=== PATIENT | female | born 1985 | race Caucasian/White ===

== ENCOUNTER 2019-06-12 05:49 | Day surgery (SDC) | payer OTHER ==
[2019-06-12] MEDS ORDERED: Gabapentin 300 MG CAP ONE ×2 (06:33)
[2019-06-12] MEDS ORDERED: CeleCOXIB 100 MG CAP ONE (06:35)
[2019-06-12] MEDS ORDERED: Famotidine/PF 20 mg/2ml Vial ONE ×2 (06:35→06:42)
[2019-06-12] MEDS ORDERED: Meperidine HCl/PF 25 MG/ML VIAL ONE (06:41)
[2019-06-12] MEDS ORDERED: Fentanyl 100 MCG/2 ML VIAL ONE ×4 (06:41→11:13)
[2019-06-12 06:44] LABS: Hemoglobin 13.8 g/dL (12.0-16.0); Mean Corpuscular HGB CONC 33.8 g/dL (32.0-36.0); Mean Corpuscular Hemoglobin 31.8 pg (27.0-31.0); Mean Corpuscular Volume 94.1 fL (78.0-98.0); Mean Platelet Volume 8.7 fL (7.4-10.4); Platelet Count 208 thou/uL (130-400); RBC Distribution Width 12.5 % (11.5-14.5); Red Blood Cell (RBC) Count 4.33 mill/uL (4.20-5.40); White Blood Cell (WBC) Count 7.9 thou/uL (4.8-10.8)
[2019-06-12] MEDS ORDERED: Bupivacaine HCl 0.5%/Epinephrine 1:200,000/PF 30 ml Vial ONE (06:57)
[2019-06-12] MEDS ORDERED: SUGAMMADEX SODIUM 200 MG/2 ML VIAL ONE (07:12)
[2019-06-12] MEDS ORDERED: Midazolam HCl 2 mg/2 ml Vial ONE (07:14)
[2019-06-12] MEDS ORDERED: Ropivacaine 0.2% 550 ML 750 ML NERVE BLCK SCH ×2 (08:15→08:45)
[2019-06-12] MEDS ORDERED: Meperidine HCl/PF 25 MG/ML VIAL SLOW IVP PRN (09:57)
[2019-06-12] MEDS ORDERED: Ketorolac Tromethamine 30 MG/ML VIAL IVP PRN (09:57)
[2019-06-12] MEDS ORDERED: Ondansetron HCl/PF 4 MG/2 ML Vial IVP PRN (09:57)
[2019-06-12] MEDS ORDERED: Promethazine HCl 25 MG/ML VIAL SLOW IVP PRN (09:57)
[2019-06-12] MEDS ORDERED: Promethazine HCl 25 MG/ML VIAL IM PRN ×2 (09:57→10:58)
[2019-06-12] MEDS ORDERED: Bisacodyl 10 MG SUPP PR PRN (10:58)
[2019-06-12] MEDS ORDERED: HYDROcodone/Acetaminophen 5/325 mg Tablet PO PRN ×2 (10:58)
[2019-06-12] MEDS ORDERED: Morphine 2 MG/ML SYRINGE SLOW IVP PRN (10:58)
[2019-06-12] MEDS ORDERED: Ondansetron PF 4 MG/2 ML Vial IVP PRN (10:58)
[2019-06-12] MEDS ORDERED: Sodium Chloride 0.9% 1,000 ML IV SCH (10:58)
[2019-06-12] MEDS ORDERED: diphenhydrAMINE 25 MG CAP PO PRN (10:58)
[2019-06-12] MEDS ORDERED: Simethicone Chewable 80 MG TAB PO PRN (10:58)
[2019-06-12] MEDS ORDERED: Zolpidem Tartrate 5 MG TAB PO PRN (10:58)
[2019-06-12] MEDS ORDERED: Ketorolac Tromethamine 30 MG/ML VIAL IVP SCH (12:00)
--- NOTE | 2019-06-12 14:44 | OP ---
DATE OF PROCEDURE: 06/12/2019 PREOPERATIVE DIAGNOSES: 1. Pelvic pain. 2. Endometriosis. 3. Right lower quadrant pain. 4. Menorrhagia. 5. Dysmenorrhea. POSTOPERATIVE DIAGNOSES: 1. Pelvic pain. 2. Endometriosis. 3. Right lower quadrant pain. 4. Menorrhagia. 5. Dysmenorrhea. PROCEDURES PERFORMED: 1. Robotic-assisted total laparoscopic hysterectomy with bilateral salpingectomy and right oophorectomy. 2. ON-Q pain pump placement. METAL TEMPLATE MAKER: Brenda Andrews PA-C. COMPLICATIONS: None. ESTIMATED BLOOD LOSS: 50 mL. ANESTHESIA: GETA. OPERATIVE FINDINGS: Uterus sounds to 8 cm. Normal-appearing vagina and cervix. LAPAROSCOPIC FINDINGS: 1. Normal-appearing uterus, normal-appearing bilateral tubal segments, normal-appearing left ovary, and normal-appearing right ovary with a right paratubal cyst. 2. Dense adhesions of the bladder to the uterine, cervix, and lower uterine segment. PROCEDURE IN DETAIL: The patient was taken back to the OR with IV fluids running. Once she was in the OR, she was placed in dorsal supine position and general anesthesia was obtained. After the patient was asleep, she was placed in low dorsal lithotomy position. The abdomen and vagina were prepped and draped in normal fashion for gynecologic surgery. Surgeons were gowned and gloved. A time-out was performed. Beginning at the vagina, an operative speculum was placed into the vagina. Prior to that, the bladder was drained approximately 200 mL of urine and a Claudio syringe was attached to the catheter tip for bladder manipulation during the case. After the speculum was placed, the anterior lip of the cervix was visualized and grasped with a single-tooth tenaculum. The uterus sounded to 8 cm. A [employer] manipulator was assembled with an 8 cm tip and a 4 cm cup and placed into the uterus, cervix, and vagina in routine fashion. The vaginal and uterine occluder balloons were inflated. The operative speculum was removed. The surgeon's gloves were changed and attention was turned to the laparoscopic portion of the procedure. Beginning approximately 1 cm above the supraumbilical fold, local anesthesia was placed underneath the skin. A 12-mm skin incision was made with a scalpel. A Veress needle was placed through the skin incision through the fascia and the abdomen was insufflated without difficulty. After the abdomen was distended, the Veress needle was removed and a 12-mm Optiview trocar was placed through this incision without difficulty. The laparoscope was then placed through this trocar with the above findings noted. There were no omental or intraabdominal adhesions noted. The right and left lower quadrant 8-mm robotic trocars were placed under direct visualization without difficulty. The right upper quadrant 8-mm trocar was placed under direct visualization without difficulty as well. Once all 4 ports were placed, the robotic instruments were placed under direct visualization through the trocars and docked at the patient's bedside. Beginning on the patient's left side, the left fallopian tube segment was identified and transected. It was removed and sent for pathologic review. The left utero-ovarian ligament was cauterized and transected, allowing the left ovary to fall away to the pelvic sidewall. The round ligament on the patient's left side was cauterized and transected. It was divided into anterior posterior leaf and dissected down towards the level of the uterine artery. The bladder was back filled and noted to be densely adhered, completely covering the cervix and the lower portion of the uterus. The uterine artery was skeletonized and a small window between the cervix and the bladder was identified. Attention was then turned to the contralateral side. The ureter was noted to be running well away from the IP ligament, which was isolated, cauterized, and transected, allowing the right ovary to fall away with the uterine specimen. The round ligament on the patient's right side was cauterized, transected, and divided into anterior posterior leaf. It was dissected down towards the level of the uterine artery. From the patient's right side, the bladder was noted to be densely adhered and scarred toward the cervix as well. With the bladder backfilled and with meticulous dissection, the bladder was freed away from the uterine cervix layer by layer. With the bladder completely dissected away from the cervix, one dense band of tissue was noted anteriorly. This was taken down with cautery. Of note, the adhesions of the bladder to the cervix extended the time of the surgery and dissection by approximately 30 minutes. During this time, the bladder was backfilled and released multiple times to delineate bladder anatomy from uterine cervix. After the bladder was completely dissected and fell away from the uterine cervix and planned colpotomy site, it was backfilled again with bladder integrity noted and no areas of leaking noted. With anatomy restored at the bladder and the cervix, the uterine arteries were better identified, cauterized, and transected. The colpotomy was then completed circumferentially. The uterine specimen was retracted into the vagina and the ovary and right tube specimen was placed in the vagina as well. The surgical pedicles and vaginal cuff were copiously irrigated and any small areas of bleeding were controlled with bipolar cautery. The vaginal cuff was reapproximated with Stratafix suture in a running fashion and completed in 2 layers. After the vaginal cuff closure was complete, the surgical pedicles and vaginal cuff were irrigated one last time. The irrigation was suctioned out of the pelvis and the pressure was dropped to 4 mmHg. No areas of bleeding were noted. A layer of Tisseel was placed over the surgical pedicles and vaginal cuff. An ON-Q catheter tip was placed under direct visualization into the anatomy and placed into the pelvis. It was primed and working well at the end of the case. All instruments were then removed from the abdomen. The counts were correct. The gas was released from the abdomen and attention was turned to closing the 4-port sites. The fascia was closed at the supraumbilical port site with Vicryl suture. All 4 skin incisions were closed with Monocryl suture and dressed with Dermabond dressing. At the end of the case, the vagina was inspected with no bleeding noted. The specimens were accounted for. Final count was correct. Job ID: [id number]
[2019-06-12 15:54] VITALS: BP 112/68; TEMP 98.3
[2019-06-12 16:06] VITALS: BMI 27.6
[2019-06-12] MEDS ORDERED: Ibuprofen 800 MG TAB PO SCH (22:00)
== END 2019-06-12 19:14 | disposition home or self-care (01) ==
LOC: SDC 05:49 → 3SE 11:15 → SDC 19:14
PROVIDERS: ATTEND Obstetrics & Gynecology
PROC: 0UT94ZZ Resection of Uterus, Percutaneous Endoscopic Approach (ICD-10-PCS; principal; 2019-06-12)
PROC: 0UT74ZZ Resection of Bilateral Fallopian Tubes, Percutaneous Endoscopic Approach (ICD-10-PCS; principal; 2019-06-12)
PROC: 0UT04ZZ Resection of Right Ovary, Percutaneous Endoscopic Approach (ICD-10-PCS; principal; 2019-06-12)
DX: N83.01 Follicular cyst of right ovary (principal); N83.11 Corpus luteum cyst of right ovary; N80.3 Endometriosis of pelvic peritoneum; N72 Inflammatory disease of cervix uteri; N83.8 Other noninflammatory disorders of ovary, fallopian tube and broad ligament; E28.2 Polycystic ovarian syndrome; F17.210 Nicotine dependence, cigarettes, uncomplicated; Z88.0 Allergy status to penicillin; Z88.5 Allergy status to narcotic agent
CPT/HCPCS: 36415; 85027; 86850; 86900; 86901; 88307; A4306; J0131; J0670; J0690; J1885; J2175; J2250; J2795; J3010; S0028

== ENCOUNTER 2019-07-14 10:57 | Outpatient (CLI) | payer OTHER ==
[2019-07-14] MEDS ORDERED: Iopamidol 370 76% 100 ML VIAL ONE (11:43)
--- NOTE | 2019-07-14 13:27 | CT ---
CT ABDOMEN AND PELVIS: HISTORY: Postoperative issues. Partial hysterectomy. Left ovary remains. COMPARISON: None. Procedure: Multiple contiguous axial images were obtained and a CT of the abdomen and pelvis with IV contrast. C oronal reformats were performed. FINDINGS: Lower Chest: within normal limits. Vessels: Normal caliber aorta. No periaortic fat stranding. Heart: Normal heart size. No significant pericardial fluid. Abdomen: Portal vein:Patent. Gallbladder: No calcified gallstones. Normal caliber wall. Liver: within normal limits. Pancreas: within normal limits. Spleen: within normal limits. Adrenals: within normal limits. Kidneys: Exophytic hypodensity emanating from the left renal cortex. There are some peripheral puncta te hyperdensities suggesting calcification. This cyst measures 6.1 x 7.5 cm. Symmetric enhancement of the kidneys. Bilaterally no obstructive uropathy. Peritoneum: No ascites or free air, no fluid collection. Bowel: Normal gastric mucosa.. No evidence of bowel obstruction. Ileocecal junction is unremarkable. Normal caliber appendix. Scattered fecal material in a nondistended, nondilated colon. Mesentery and Retroperitoneum: No enlarged mesenteric or retroperitoneal lymph nodes. Abdominal Wall: within normal limits. Pelvis: Reproductive Organs: Surgically absent uterus. Enhancing hypodensity in the left adnexa, likely assoc iated with the ovary measuring 4.1 x 3.2 cm. Attenuation coefficient is 16.1 Hounsfield units. There is a nonspecific hypodensity in the midportion of the pelvis, measuring 3.2 x 2.6 cm. Attenuat ion coefficient is 4.7 Hounsfield units. Pelvis: No mass, lymphadenopathy or free air. A small amount of nonspecific free fluid is noted in th e pelvis. Bladder: within normal limits. Bones: within normal limits. IMPRESSION: 1. Complex hypodensity in the left adnexa likely associated with the left ovary. Clinical correlation is essential. Followup ultrasound in 8 weeks to ensure resolution. 2. Nonspecific simple cyst in the midline of the pelvis which may represent postoperative change. 3. A small amount of fluid in the pelvis likely physiologic or possibly postsurgical. 4. Exophytic cyst emanating from the left renal cortex with attenuation coefficient suggesting the po ssibility of a complex cyst. Correlation made with a stone protocol CT 11/11/2016 redemonstrates this lesion. There does appear to be interval increase in size. Better characterization with pre and postcontrast abdomen MRI may be beneficial given the presence of peripheral calcifications. CODE T Transcribed Date/Time: 07/14/2019 1:58 PM
== END 2019-07-14 10:58 | disposition home or self-care (01) ==
LOC: CT 10:57
PROVIDERS: ATTEND Obstetrics & Gynecology
DX: R19.00 Intra-abdominal and pelvic swelling, mass and lump, unspecified site (principal); G89.18 Other acute postprocedural pain; R10.9 Unspecified abdominal pain; M85.68 Other cyst of bone, other site
CPT/HCPCS: 74177; Q9967

== ENCOUNTER 2020-01-17 10:02 | Day surgery (SDC) | payer OTHER ==
[2020-01-12 15:03] VITALS: BMI 27.6
[2020-01-17] MEDS ORDERED: Fentanyl 100 MCG/2 ML VIAL ONE (10:28)
[2020-01-17] MEDS ORDERED: Midazolam HCl 2 mg/2 ml Vial ONE (10:29)
[2020-01-17] MEDS ORDERED: Sodium Bicarbonate 2.5 MEQ/5 ML VIAL ONE (10:29)
[2020-01-17 10:30] LABS: #Basophils 0.1 thou/uL (0.0-0.2); #Eosinphils 0.3 thou/uL (0.0-0.7); #Lymphocytes 2.8 thou/uL (1.20-3.40); #Monocytes 0.6 thou/uL (0.11-0.59); #Neutrophils 3.3 thou/uL (1.40-6.50); %Basophils 0.9 % (0.0-1.0); %Eosinophils 3.8 % (0.0-10.0); %Lymphocytes 39.7 % (21.0-51.0); %Monocytes 7.9 % (0.0-10.0); %Neutrophils 47.7 % (42.0-75.0); Hemoglobin 14.8 g/dL (12.0-16.0); Mean Corpuscular HGB CONC 32.4 g/dL (32.0-36.0); Mean Corpuscular Hemoglobin 31.6 pg (27.0-31.0); Mean Corpuscular Volume 97.3 fL (78.0-98.0); Mean Platelet Volume 8.8 fL (7.4-10.4); Platelet Count 210 thou/uL (130-400); RBC Distribution Width 12.8 % (11.5-14.5); Red Blood Cell (RBC) Count 4.68 mill/uL (4.20-5.40)
[2020-01-17 10:44] LABS: INR-International Normal Ratio 0.9; Prothrombin Time 12.2 sec (12.0-14.7)
[2020-01-17 10:45] LABS: PTT 29.3 sec (22.9-36.1)
[2020-01-17 14:05] VITALS: BP 106/76; TEMP 97.6
--- NOTE | 2020-01-17 15:39 | CT ---
EXAM: CT Cyst Guided Aspiration S/I PROVIDED CLINICAL HISTORY: Large left renal cystic lesion in a patient with left flank discomfort. Aspiration of the cystic lesi on was requested by Dr. Priest. COMPARISON: None TECHNIQUE: The procedure including the risks and complications were explained to the patient, and informed conse nt was obtained. Patient was placed on the CT scan table in the prone position. Conscious sedation was performed with intravenous administration of fentanyl and Versed. Patient was monitored for appro ximately 30 minutes during as well as immediately postprocedure. Limited noncontrasted CT scan was obtained through the level of the kidneys with grid localizer in pl theo overlying the left flank. An area was marked and then meticulously prepped and draped in usual sterile fashion. The skin and subcutaneous tissues were infiltrated with buffered 1% lidocaine for lo eufemia anesthesia. A small skin incision was made. A 19-gauge Yueh needle and 5 Mongolian catheter was advanced followed by axial noncontrasted CT images. This was repeated until the needle and catheter w ere placed within the left renal cystic lesion. Catheter was advanced, and the needle was removed. Approximately 200 mL of clear dark straw-colored fluid was aspirated. Patient states discomfort with continued aspiration, and as a result, limited noncontrasted CT images were obtained which did not demonstrate presence of the collection at distal portion of the catheter. As a result, the catheter w as removed, and hemostasis was achieved with direct pressure. Follow-up noncontrasted CT scan examination demonstrates significant interval decrease in size of the collection; although, an irregular collection persists. Patient states immediate relief of pressure-like symptoms and discomfort which the patient experienced preprocedure. Patient was transpo rted to radiology nurses holding after dry sterile dressing was placed at puncture site. Patient was further monitored in the radiology nurses holding area without complication. IMPRESSION: 1. Large superior pole left renal cystic lesion demonstrating increased density on precontrast images . This corresponds to findings noted on CT exam on 07/14/2019. 2. Technically successful CT-guided percutaneous aspiration of large cystic lesion with aspiration of 200 mL of clear dark straw-colored fluid. The cystic lesion was not completely aspirated due to patient experiencing discomfort with continued aspiration, and as a result, the procedure was termina jen at this point. However, there is considerable decrease in size of the cystic lesion with resolution of patient's previously experienced pain prior to the procedure. Specimen was sent for lab s.
== END 2020-01-17 13:50 | disposition home or self-care (01) ==
LOC: SPEC 10:02
PROVIDERS: ATTEND Urology
PROC: 0T913ZX Drainage of Left Kidney, Percutaneous Approach, Diagnostic (ICD-10-PCS; principal; 2020-01-17)
DX: N28.1 Cyst of kidney, acquired (principal); E28.2 Polycystic ovarian syndrome; F32.9 Major depressive disorder, single episode, unspecified; F17.200 Nicotine dependence, unspecified, uncomplicated; Z79.899 Other long term (current) drug therapy; Z88.0 Allergy status to penicillin; Z88.5 Allergy status to narcotic agent; Z91.018 Allergy to other foods
CPT/HCPCS: 36415; 77002; 77012; 85025; 85610; 85730; 87086; 88173; J2250; J3010

== ENCOUNTER 2020-08-16 20:50 | Emergency (ER) | payer BC ==
[2020-08-16] MEDS ORDERED: Ketorolac Tromethamine 30 MG/ML VIAL ONE (21:33)
[2020-08-16] MEDS ORDERED: Acetaminophen/Codeine 30-300mg Tablet ONE (21:33)
[2020-08-16 22:15] LABS: #Basophils 0.1 thou/uL (0.0-0.2); #Eosinphils 0.3 thou/uL (0.0-0.7); #Lymphocytes 3.5 thou/uL (1.20-3.40); #Monocytes 1.4 thou/uL (0.11-0.59); #Neutrophils 9.3 thou/uL (1.40-6.50); %Basophils 0.4 % (0.0-1.0); %Lymphocytes 24.1 % (21.0-51.0); %Monocytes 9.9 % (0.0-10.0); %Neutrophils 63.6 % (42.0-75.0); Hemoglobin 14.2 g/dL (12.0-16.0); Mean Corpuscular HGB CONC 33.1 g/dL (32.0-36.0); Mean Corpuscular Hemoglobin 31.2 pg (27.0-31.0); Mean Corpuscular Volume 94.3 fL (78.0-98.0); Mean Platelet Volume 8.5 fL (7.4-10.4); Platelet Count 206 thou/uL (130-400); RBC Distribution Width 12.3 % (11.5-14.5); Red Blood Cell (RBC) Count 4.55 mill/uL (4.20-5.40); White Blood Cell (WBC) Count 14.6 thou/uL (4.8-10.8)
[2020-08-16 22:31] LABS: ALT (SGPT) 8 U/L (8-55); AST (SGOT) 12 U/L (5-34); Albumin 3.9 g/dL (3.5-5.0); Alkaline Phosphatase 62 U/L (40-110); Anion Gap 15 mmol/L (10-20); BUN (Urea Nitrogen) 10 mg/dL (7.0-18.7); Bilirubin, Total 0.2 mg/dL (0.2-1.2); Calc. Creatinine Clearance 0 mL/min (70-130); Calcium 9.2 mg/dL (7.8-10.44); Carbon Dioxide 21 mmol/L (22-29); Chloride 104 mmol/L (98-107); Globulin 3.7 g/dL (2.4-3.5); Glucose 97 mg/dL (70-105); Magnesium 2.2 mg/dL (1.6-2.6); Potassium 4.1 mmol/L (3.5-5.1); Protein, Total 7.6 g/dL (6.0-8.3); Sodium 136 mmol/L (136-145)
--- NOTE | 2020-08-16 23:27 | ULT ---
ULTRASOUND DOPPLER DUPLEX VENOUS RIGHT LOWER EXTREMITY: DATE: 08/16/2020 HISTORY: 34-year-old female with right lower extremity pain TECHNIQUE: Grayscale, color-flow, and spectral analysis, of major veins of right lower extremity. FINDINGS: There is demonstration of blood flow with normal compressibility, of the right common femoral, profun da femoral, greater saphenous, femoral, popliteal, and posterior tibial, veins. IMPRESSION: Negative. No deep venous thrombosis of right lower extremity.
== END 2020-08-16 23:25 | disposition home or self-care (01) ==
LOC: ERS 20:50
DX: M79.604 Pain in right leg (principal); R22.41 Localized swelling, mass and lump, right lower limb; F17.210 Nicotine dependence, cigarettes, uncomplicated
CPT/HCPCS: 36415; 80053; 83735; 85025; 85379; 96372; J1885

== ENCOUNTER 2021-08-07 10:02 | Outpatient (CLI) | payer BC ==
[2021-08-07 11:37] LABS: Bilirubin Neg (Negative); Blood, Urine 10 (Negative); Clarity Slightly Cloudy (Clear); Glucose, Urine (Dipstick) Normal (Negative); Ketone, Urine Negative (Negative); Leukocyte Negative (Negative); Nitrite Negative (Negative); Protein, Urine (Dipstick) Negative (Neg-Trace); Urobilinogen Normal mg/dL (Less than 2)
[2021-08-07 11:47] LABS: Hemoglobin 13.5 g/dL (12.0-15.5); Mean Corpuscular HGB CONC 31.5 g/dL (32.0-36.0); Mean Corpuscular Hemoglobin 30.1 pg (27.0-33.0); Mean Corpuscular Volume 95.8 fl (81.6-98.3); Mean Platelet Volume 10.9 fl (7.4-10.4); Platelet Count 273 10x3/uL (150-450); RBC Distribution Width 13.4 % (11.5-14.5); Red Blood Cell (RBC) Count 4.48 10x6/uL (3.90-5.03); White Blood Cell (WBC) Count 8.5 10x3/uL (3.5-10.5)
[2021-08-07 11:56] LABS: Anion Gap 13 mmol/L (10-20); BUN (Urea Nitrogen) 9 mg/dL (7.0-18.7); Calc. Creatinine Clearance 0 mL/min (70-130); Calcium 9.3 mg/dL (7.8-10.44); Carbon Dioxide 25 mmol/L (22-29); Chloride 106 mmol/L (98-107); Glucose 89 mg/dL (70-105); Potassium 4.3 mmol/L (3.5-5.1); Sodium 140 mmol/L (136-145)
[2021-08-07 12:24] LABS: Bacteria/HPF 3+ HPF (None Seen); RBC/HPF 0-3 HPF (0-3); WBC/HPF 0-3 HPF (0-3)
[2021-08-07 18:23] LABS: SARS-CoV-2 PCR by NAA Not Detected (NotDetected)
== END 2021-08-07 10:03 | disposition home or self-care (01) ==
LOC: LABBT 10:02
PROVIDERS: ATTEND Urology
DX: Z01.812 Encounter for preprocedural laboratory examination (principal); Z20.822 Contact with and (suspected) exposure to COVID-19
CPT/HCPCS: 80048; 81001; 85027; 87086; U0003; U0005

== ENCOUNTER 2021-08-12 05:44 | Observation (INO) | payer BC ==
[2021-08-08 12:30] VITALS: BMI 31.5
[2021-08-12] MEDS ORDERED: Levofloxacin 500 mg/D5W 100 ml Premix Bag ONE (06:08)
[2021-08-12] MEDS ORDERED: Fentanyl 250 MCG/5 ML VIAL ONE (06:45)
[2021-08-12] MEDS ORDERED: Midazolam HCl 2 mg/2 ml Vial ONE ×2 (06:45→07:02)
[2021-08-12] MEDS ORDERED: Lidocaine 1% w/Epinephrine 1:100K 30 ML VIAL ONE (07:00)
[2021-08-12] MEDS ORDERED: Bupivacaine 0.25% 10 ML VIAL ONE (07:00)
[2021-08-12] MEDS ORDERED: Famotidine/PF 20 mg/2ml Vial ONE (07:02)
[2021-08-12] MEDS ORDERED: Dexamethasone 20 MG/5 ML VIAL ONE (07:34)
[2021-08-12] MEDS ORDERED: PROPOFOL 200 MG/20 ML VIAL ONE (07:34)
[2021-08-12] MEDS ORDERED: Ondansetron PF 4 MG/2 ML Vial ONE (07:34)
[2021-08-12] MEDS ORDERED: Rocuronium Bromide 10 MG/ML (10ML VIAL) ONE (07:34)
[2021-08-12] MEDS ORDERED: Glycopyrrolate 0.2 MG/ML 5 ML SYRINGE ONE (07:34)
[2021-08-12] MEDS ORDERED: Lidocaine 1% PF 5 ML VIAL ONE (07:34)
[2021-08-12] MEDS ORDERED: SUGAMMADEX SODIUM 200 MG/2 ML VIAL ONE (08:51)
[2021-08-12] MEDS ORDERED: Zolpidem Tartrate 5 MG TAB PO PRN (09:01)
[2021-08-12] MEDS ORDERED: Ondansetron PF 4 MG/2 ML Vial IVP PRN (09:01)
[2021-08-12] MEDS ORDERED: Ketorolac Tromethamine 30 MG/ML VIAL IVP PRN (09:01)
[2021-08-12] MEDS ORDERED: diphenhydrAMINE 50 MG/ML VIAL IVP PRN (09:01)
[2021-08-12] MEDS ORDERED: Fentanyl 100 MCG/2 ML VIAL ONE ×3 (09:05→09:51)
[2021-08-12] MEDS ORDERED: Morphine 4 MG/ML VIAL ONE (10:09)
[2021-08-12] MEDS: Docusate 100 MG CAP PO SCH ×2 (11:01→21:10)
[2021-08-12] MEDS: Sodium Chloride 0.9% 1,000 ML IV SCH (15:05)
[2021-08-12] MEDS: HYDROcodone/Acetaminophen 5/325 mg Tablet PO PRN (15:06)
[2021-08-12] MEDS: Morphine 4 MG/ML VIAL SLOW IVP PRN (21:10)
[2021-08-13] MEDS: HYDROcodone/Acetaminophen 5/325 mg Tablet PO PRN (04:32)
[2021-08-13] MEDS: Sodium Chloride 0.9% 1,000 ML IV SCH (07:10)
[2021-08-13 08:27] VITALS: BP 123/79; TEMP 98.6
[2021-08-13] MEDS ORDERED: FLU VACC QS2021-22(6MOS UP)/PF 60 MCG/0.5 ML SYRINGE IM ONE (09:00)
[2021-08-13] MEDS: Docusate 100 MG CAP PO SCH (09:50)
[2021-08-13] MEDS: Morphine 4 MG/ML VIAL SLOW IVP PRN (09:50)
== END 2021-08-13 10:42 | disposition home or self-care (01) ==
LOC: SDC 05:44 → SURG A 09:01 → SJJU 18:38
PROVIDERS: ADMIT Urology; ATTEND Urology
PROC: 0TB14ZZ Excision of Left Kidney, Percutaneous Endoscopic Approach (ICD-10-PCS; principal; 2021-08-12)
DX: N28.1 Cyst of kidney, acquired (principal); E28.2 Polycystic ovarian syndrome; F17.200 Nicotine dependence, unspecified, uncomplicated; Z88.0 Allergy status to penicillin; Z88.5 Allergy status to narcotic agent; Z91.018 Allergy to other foods
CPT/HCPCS: 88305; 96374; 96376; G0378; J1100; J1956; J2250; J2270; J2405; J2704; J3010; J7050; S0020; S0028

== ENCOUNTER 2024-07-06 09:56 | Emergency (ER) | payer BC, OTHER ==
[2024-07-06] MEDS ORDERED: Famotidine/PF 20 mg/2ml Vial ONE (10:48)
[2024-07-06] MEDS ORDERED: Sucralfate 1 GM/10 ML UDCUP ONE (10:48)
[2024-07-06 11:05] LABS: #Basophils 0.05 10x3/uL (0.0-0.2); %Basophils 0.5 % (0.0-1.0); %Eosinophils 1.1 % (0.0-10.0); %Lymphocytes 17.5 % (21.0-51.0); %Monocytes 7.1 % (0.0-10.0); %Neutrophils 73.4 % (42.0-75.0); Hematocrit 41.7 % (36.0-47.0); Hemoglobin 13.6 g/dL (12.0-16.0); Mean Corpuscular HGB CONC 32.6 g/dL (32.0-36.0); Mean Corpuscular Hemoglobin 30.4 pg (27.0-31.0); Mean Corpuscular Volume 93.1 fL (78.0-98.0); Mean Platelet Volume 10.4 fL (7.4-10.4); Platelet Count 244 10x3/uL (130-400); RBC Distribution Width 13.2 % (11.5-14.5); Red Blood Cell (RBC) Count 4.48 mill/uL (4.20-5.40)
[2024-07-06 11:46] LABS: ALT (SGPT) 9 U/L (8-55); AST (SGOT) 12 U/L (5-34); Albumin 3.8 g/dL (3.5-5.0); Alkaline Phosphatase 70 U/L (40-110); Anion Gap 13 mmol/L (10-20); BUN (Urea Nitrogen) 7 mg/dL (7.0-18.7); Bilirubin, Total 0.3 mg/dL (0.2-1.2); Calc. Creatinine Clearance 0 mL/min (70-130); Calcium 9.2 mg/dL (7.8-10.44); Carbon Dioxide 24 mmol/L (22-29); Chloride 103 mmol/L (98-107); Estimated GFR 107; Globulin 3.4 g/dL (2.4-3.5); Glucose 101 mg/dL (70-105); Lipase 14 U/L (8-78); Potassium 4.1 mmol/L (3.5-5.1); Protein, Total 7.2 g/dL (6.0-8.3); Sodium 136 mmol/L (136-145)
[2024-07-06 11:49] LABS: Troponin I Less than 0.010 ng/mL (< 0.028)
[2024-07-06] MEDS ORDERED: Pantoprazole 40 MG VIAL ONE (12:47)
[2024-07-06] MEDS ORDERED: Mag-Al 1200 mg/1200 mg/30 ML UDCUP ONE (12:47)
[2024-07-06] MEDS ORDERED: Ketorolac Tromethamine 30 MG (1 mL) VIAL ONE (12:47)
[2024-07-06] MEDS ORDERED: Lidocaine Viscous Sol 2% 15 ml UD Cup ONE (12:47)
== END 2024-07-06 13:37 | disposition home or self-care (01) ==
LOC: ERS 09:56
DX: R07.9 Chest pain, unspecified (principal); F17.210 Nicotine dependence, cigarettes, uncomplicated
CPT/HCPCS: 36415; 71045; 80053; 83690; 83880; 84484; 85025; 85379; 93005; 94760; 96374; 96375; J1885; J2470; J3490